=== PATIENT | male | born 1995 | race Caucasian/White ===

== ENCOUNTER → 2021-10-17 | Day surgery (SDC) | payer OTHER ==
[2021-10-16 15:42] VITALS: BMI 15.8
[~2021-10-17] MED LIST: Iopamidol-M 300 61% 15 ML VIAL ONE
[2021-10-17 07:35] VITALS: BP 104/72; TEMP 97.8
== END ==
LOC: RAD 07:03 → EDSTATUS 08:00
PROC: B02B1ZZ Computerized Tomography (CT Scan) of Spinal Cord using Low Osmolar Contrast (ICD-10-PCS; principal; 2021-10-17)
DX: M54.12 Radiculopathy, cervical region (principal); Z79.899 Other long term (current) drug therapy; Z88.0 Allergy status to penicillin
CPT/HCPCS: 62302; 72126

== ENCOUNTER 2021-12-08 13:16 | Outpatient (CLI) | payer OTHER | END 2021-12-08 13:17 | disposition home or self-care (01) | LOC: TBSIIMAG 13:16 | PROVIDERS: ATTEND Neurological Surgery | DX: M54.12 Radiculopathy, cervical region (principal); M25.511 Pain in right shoulder; S43.431A Superior glenoid labrum lesion of right shoulder, initial encounter ==